=== PATIENT | male | born 1960 | race Caucasian/White ===

== ENCOUNTER 2017-03-15 06:20 | Day surgery (SDC) | payer OTHER ==
[~2017-03-15] VITALS: Ht 172.7 cm; Wt 105.0 kg
--- NOTE | 2017-03-24 07:33 | OR ---
ADMIT: 03/15/2017 RM/LOC: [facility] MR#: [id number] [address] [address] [place] [address] Operative/Delivery Room Report SEX: M AGE: 56 : 1960 SURGERY DATE: 03/15/2017 SURGEON: Lenin Lombardo MD PREOPERATIVE DIAGNOSIS: Left-sided vagal nerve stimulator with internal pulse generator at the end of its useful life expectancy with need for removal and replacement of internal pulse generator. POSTOPERATIVE DIAGNOSIS: Left-sided vagal nerve stimulator with internal pulse generator at the end of its useful life expectancy with need for removal and replacement of internal pulse generator. PROCEDURE: Removal of left-sided internal pulse generator and replacement utilizing the cardiac capture system with intraoperative programming as well as cardiac assessment intraoperatively. PROCEDURE IN DETAIL: The patient was brought to the operative theater and placed under general endotracheal anesthesia in a supine position. A time-out was utilized to ascertain the correct site and side of surgery as well as other pertinent patient historical information. Counts were obtained at beginning and end of case with no change betwixt 2. Antibiotics given before 1 hour of incision. The patient's prior incision was in the axillary region that would not allow me access medially and inferiorly enough to place the internal pulse generator. After having discussed with him preoperatively, a new incision was fashioned. I then dissected through the adipose tissue, finding the internal pulse generator and removing it. Multiple glove changes were used throughout this case. Once the generator was removed, the wiring was disconnected from the scar tissue as well as could be, removing any tension from the lead for the electrodes and then connected to a new internal pulse generator. A pocket was created inferomedial to the prior pocket position and utilizing the pectoralis fascia and 0 Ethibond was used to sew the new internal pulse generator and after connecting it to the system. Intraoperative programming revealed acceptable cardiac capture with ADMIT: 03/15/2017 RM/LOC: [facility] MR#: [id number] [facility] [address] [address] [place] [address] Operative/Delivery Room Report SEX: M AGE: 56 : 1960 replacement of stimulator settings with new cardiac monitoring program settings placed. Once this was completed, the wound was closed with a deep layer of simple interrupted 2-0 Vicryl and then subcutaneous simple interrupted 2-0 Vicryl and subcuticular 3-0 Stratafix on the skin. COMPLICATIONS: None. ESTIMATED BLOOD LOSS: Charted. SPECIMEN: None. DISPOSITION: Extubated and taken to postanesthesia care unit. Lenin Lombardo MD/ jayy JOB #: [id number] CC: Lenin Lombardo, Attending Physician Candida Magdaleno, Family Physician
== END 2017-03-15 13:05 | disposition home or self-care (01) ==
LOC: SSS 06:20
PROC: 0NP00NZ Removal of Neurostimulator Generator from Skull, Open Approach (ICD-10-PCS; principal; 2017-03-15)
PROC: 0NH00NZ Insertion of Neurostimulator Generator into Skull, Open Approach (ICD-10-PCS; principal; 2017-03-15)
DX: G40.019 Localization-related (focal) (partial) idiopathic epilepsy and epileptic syndromes with seizures of localized onset, intractable, without status epilepticus (principal); Z79.82 Long term (current) use of aspirin; Z79.899 Other long term (current) drug therapy; Z90.49 Acquired absence of other specified parts of digestive tract; Z98.890 Other specified postprocedural states; Z87.891 Personal history of nicotine dependence